=== PATIENT | male | born 1945 | race Caucasian/White ===

== ENCOUNTER 2018-07-19 06:00 | Observation (INO) ==
[~2018-07-19 06:00] MED LIST: ASPIRIN 325 MG TABLET PO ONE; DEXTROSE 5% NACL 0.45% 1,000 ML IV SCH; DIAZEPAM 5 MG TABLET PO ONE; MAGNESIUM SULF RIDER 2 GM in PREMIX 1 EACH IV PRN; POTASSIUM CHLORIDE RIDER 10 MEQ in PREMIX 1 EACH IV PRN; diphenhydrAMINE CAP 25 MG CAPSULE PO ONE
[2018-07-19] MEDS ORDERED: DIAZEPAM 5 MG TABLET ONE (07:03)
[2018-07-19] MEDS ORDERED: diphenhydrAMINE CAP 25 MG CAPSULE ONE (07:04)
[2018-07-19] MEDS ORDERED: LIDOCAINE 1% 20 ML VIAL ONE ×2 (10:49→10:50)
[2018-07-19] MEDS ORDERED: HEPARIN/NACL 0.9% 2 UNITS/ML 1,000 ML IV ONE (10:49)
[2018-07-19] MEDS ORDERED: VERAPAMIL 5 MG/2 ML VIAL ONE (11:00)
[2018-07-19] MEDS ORDERED: NITROGLYCERIN DRIP 50 MG/250 ML BOTTLE IV ONE (11:00)
[2018-07-19] MEDS ORDERED: fentaNYL 100 MCG/2 ML VIAL ONE (11:05)
[2018-07-19] MEDS ORDERED: MIDAZOLAM 2 MG/2 ML VIAL ONE (11:05)
[2018-07-19] MEDS ORDERED: ENOXAPARIN 60 MG/0.6 ML SYRINGE ONE (11:24)
[2018-07-19] MEDS ORDERED: LIDOCAINE 1%/EPI INJ 20 ML VIAL ONE (11:43)
[2018-07-19] MEDS ORDERED: ADENOSINE 90 MG/30 ML VIAL IV ONE (12:01)
[2018-07-19] MEDS ORDERED: ENOXAPARIN 30 MG/0.3 ML SYRINGE ONE (12:06)
[2018-07-19] MEDS ORDERED: ASPIRIN 325 MG TABLET ONE (12:06)
[2018-07-19] MEDS ORDERED: TIROFIBAN 5,000 MCG/100 ML PREMIX IV ONE (12:15)
[2018-07-19] MEDS ORDERED: HEPARIN/NACL 0.9% 2 UNITS/ML 500 ML IV ONE (12:16)
[2018-07-19] MEDS ORDERED: CLOPIDOGREL 300 MG TABLET ONE (12:38)
[2018-07-19] MEDS ORDERED: TIROFIBAN 5,000 MCG/100 ML PREMIX IV SCH (13:00)
[2018-07-19] MEDS ORDERED: NITROGLYCERIN SL 0.4 MG TABLET SL PRN (13:17)
[2018-07-19] MEDS ORDERED: HYDROmorphone 2 MG/1 ML VIAL IV PRN (13:18)
[2018-07-19] MEDS ORDERED: DEXTROSE 50% 25 GM/50 ML VIAL IV PRN (13:20)
[2018-07-19] MEDS ORDERED: GLUCAGON 1 MG VIAL IM PRN (13:20)
[2018-07-19] MEDS: ATORVASTATIN 40 MG TABLET PO SCH (21:48)
[2018-07-19] MEDS: AMITRIPTYLINE 25 MG TABLET PO SCH (21:48)
[2018-07-19] MEDS: ISOSORBIDE MONONITRATE 30 MG TABLET PO SCH (21:48)
[2018-07-19 23:34] LABS: Basophils # 0.1 10*3/uL (0.0-0.2); Basophils % 0.5 % (0.0-0.8); Eosinophils # 0.2 10*3/uL (0.0-0.87); Eosinophils % 1.1 % (0.00-10.9); Hematocrit 50.5 VOL% (42.0-52.0); Hemoglobin 17.3 GM/DL (14.0-18.0); Immature Granulocytes % 0.9 %; Immature Granulocytes Absolute 0.12 #; Lymphocytes # 1.9 10*3/uL (1.4-4.0); Mean Corpuscular HGB Conc 34.3 GM/DL (32-36); Mean Corpuscular Hemoglobin 31 PG (27-34); Mean Corpuscular Volume 89.9 FL (87-102); Mean Platelet Volume 9.7 FL (9.6-12.0); Monocytes # 1.1 10*3/uL (0.11-0.8); Monocytes % 7.8 % (1.7-12.7); Neutrophils # 10.5 10*3/uL (1.4-7.4); Neutrophils % 75.7 % (38.7-73.9); Platelet Count 271 T/CUMM (130-400); Red Blood Count 5.62 MC/CUMM (3.8-5.5); Red Cell Distribution Width 12.3 % (9.3-17.3); White Blood Count 13.9 T/CUMM (4-12)
[2018-07-20 01:20] LABS: Apearance,Urine CLOUDY (Clear); Bilirubin,Urine Negative (Negative); Blood, Urine Moderate mg/dL (Negative); Glucose,Urine (UA) Negative (Negative); Ketones,Urine 5 mg/dL (Negative); Nitrite,Urine Negative (Negative); Protein,Urine 100 MG/DL; RBC,Urine 2598 /HPF (0-4); Urine Color Red (Yellow); Urine Specific Gravity 1.026 (1.001-1.035); Urine Urobilinogen < 2.0 EU/DL (0.2-1.0)
[2018-07-20 05:54] LABS: Basophils # 0.1 10*3/uL (0.0-0.2); Basophils % 0.4 % (0.0-0.8); Eosinophils # 0.1 10*3/uL (0.0-0.87); Eosinophils % 0.7 % (0.00-10.9); Hematocrit 46.4 VOL% (42.0-52.0); Hemoglobin 15.8 GM/DL (14.0-18.0); Immature Granulocytes % 0.8 %; Immature Granulocytes Absolute 0.11 #; Lymphocytes # 1.9 10*3/uL (1.4-4.0); Mean Corpuscular HGB Conc 34.1 GM/DL (32-36); Mean Corpuscular Hemoglobin 31 PG (27-34); Mean Corpuscular Volume 89.7 FL (87-102); Mean Platelet Volume 9.8 FL (9.6-12.0); Monocytes # 0.9 10*3/uL (0.11-0.8); Monocytes % 6.8 % (1.7-12.7); Neutrophils # 10.7 10*3/uL (1.4-7.4); Neutrophils % 77.3 % (38.7-73.9); Platelet Count 230 T/CUMM (130-400); Red Blood Count 5.17 MC/CUMM (3.8-5.5); Red Cell Distribution Width 12.3 % (9.3-17.3); White Blood Count 13.9 T/CUMM (4-12)
[2018-07-20 06:26] LABS: Calcium 9.1 MG/DL (8.5-10.1)
[2018-07-20] MEDS ORDERED: PANTOPRAZOLE 40 MG TABLET PO SCH (09:00)
[2018-07-20] MEDS ORDERED: NON-FORMULARY MEDICATION (Lovastatin [Lovastatin] 40 MG) PO SCH (09:00)
[2018-07-20] MEDS ORDERED: ASPIRIN EC 81 MG TABLET PO SCH ×2 (09:00)
[2018-07-20] MEDS: BISOPROLOL/HCTZ 5-6.25 MG TABLET PO SCH (09:41)
[2018-07-20] MEDS: CETIRIZINE 10 MG TABLET PO SCH (09:41)
[2018-07-20] MEDS: CLOPIDOGREL 75 MG TABLET PO SCH (09:43)
[2018-07-20] MEDS: PANTOPRAZOLE 40 MG TABLET PO SCH (09:43)
[2018-07-20] MEDS: DUTASTERIDE 0.5 MG CAPSULE PO SCH (09:43)
[2018-07-20] MEDS ORDERED: GLUCAGON 1 MG VIAL IM PRN (09:54)
[2018-07-20] MEDS ORDERED: DEXTROSE 50% 25 GM/50 ML VIAL IV PRN (09:54)
[2018-07-20] MEDS: INSULIN LISPRO 100 UNIT/ML SUBCUT SCH ×3 (12:36→21:18)
[2018-07-20] MEDS: AMITRIPTYLINE 25 MG TABLET PO SCH (21:18)
[2018-07-20] MEDS: ATORVASTATIN 40 MG TABLET PO SCH (21:18)
[2018-07-20] MEDS: ISOSORBIDE MONONITRATE 30 MG TABLET PO SCH (21:19)
[2018-07-21 04:23] LABS: Hematocrit 45.1 VOL% (42.0-52.0); Hemoglobin 15.4 GM/DL (14.0-18.0)
[2018-07-21 05:10] LABS: Calcium 8.7 MG/DL (8.5-10.1); Osmolality,Calculated 276.8 MOS/KG (273-304); Potassium 3.9 MMOL/L (3.5-5.1)
[2018-07-21] MEDS: INSULIN LISPRO 100 UNIT/ML SUBCUT SCH ×2 (08:42→12:31)
[2018-07-21] MEDS: BISOPROLOL/HCTZ 5-6.25 MG TABLET PO SCH (08:43)
[2018-07-21] MEDS: PANTOPRAZOLE 40 MG TABLET PO SCH (08:43)
[2018-07-21] MEDS: CETIRIZINE 10 MG TABLET PO SCH (08:43)
[2018-07-21] MEDS: CLOPIDOGREL 75 MG TABLET PO SCH (08:43)
[2018-07-21] MEDS: DUTASTERIDE 0.5 MG CAPSULE PO SCH (08:43)
[2018-07-21 11:59] VITALS: BP 139/86
== END 2018-07-21 14:30 | disposition home or self-care (01) ==
LOC: N.CL 06:00 → N.TELEN 06:00 → N.CL 06:02 → EDSTATUS 10:00 → EDOUTPBED 15:29 → N.TELEN 15:29 → N.CL 07-21 14:30 → UNDODEPREF 08-02 11:59
PROVIDERS: ADMIT Internal Medicine Interventional Cardiology; ATTEND Internal Medicine Interventional Cardiology
PROC: CLCCHCL (ICD-10-PCS; 2018-07-19 10:15)